=== PATIENT | male | born 1945 ===

== ENCOUNTER 2020-03-09 01:06 | Inpatient (IN) ==
[2020-03-09] MEDS ORDERED: IOPAMIDOL 100 ML BOTTLE IV ONE (01:07)
[2020-03-09] MEDS ORDERED: PANTOPRAZOLE 40 MG VIAL IV ONE (01:40)
[2020-03-09] MEDS ORDERED: LACTATED RINGERS 1,000 ML IV ONE (01:40)
--- NOTE | 2020-03-09 02:25 | Emergency Department Note ---
Abdominal Pain HPI - General Chief Complaint: Abdominal Pain Stated Complaint: Liver pain Time Seen by Provider: 03/09/20 01:40 Source: patient, EMS, old records reviewed Mode of arrival: EMS Limitations: altered mental status, other - History of Present Illness HPI Narrative: Patient is brought in by ambulance with the chief complaint of abdominal pain, he tells me he quit drinking about 3 months ago, prior to that he was drinking about one or 2 beers a day. [place] family that all tested positive for Covid, however, this was at least a month ago and he is not symptomatic with a cough, is not complaining of chest pain, his O2 sats are 98% and his chief complaint was more abdominal pain. He's not had any diarrhea, had a normal bowel movement today, there is no history of any syncope, weakness, he does tell me his pain is better now, is not really complaining of pain, although he is a little bit tender in the epigastric area. He's not sure whether he had hepatitis before in the past, his medications were reviewed. He does take Effexor, also he is on folic acid and B vitamins as well as thiamine. No history of recent trauma, no fevers or chills. MD Complaint: abdominal pain - Related Data Home Medications Medication Instructions Recorded Confirmed Folic Acid 1 mg PO QDAY 03/09/20 03/09/20 Multivit-Min/Iron Fum/Folic AC 1 each PO QDAY 03/09/20 03/09/20 [Uzysf-Jaarvfm-Yxfpmchg Tablet] Thiamine [Vitamin B1] 100 mg PO QDAY 03/09/20 03/09/20 Venlafaxine HCl [Venlafaxine HCl 75 mg PO QDAY 03/09/20 03/09/20 ER] Allergies Allergy/AdvReac Type Severity Reaction Status Date / Time Penicillins Allergy Unknown Verified 03/09/20 01:32 Review of Systems All systems ED: reviewed and negative except as stated. Constitutional: Denies: fever, chills Abdominal Pain PMH - Past Medical History Medical history: Reports: other (alcohol abuse in the past, hx depression) Surgical history ED: Reports: non-contributory, other (history of right eye injury, blindness right eye) Psychiatric history: Reports: anxiety, depression - Social History Smoking status: Current every day smoker Alcohol use: Reports: None Drug use: Reports: none Physical Exam Limitations: no limitations General appearance: alert, in no apparent distress Head: atraumatic, normocephalic, normal inspection Eye: Present: PERRL, visual kasper intact, other (his right eye is opaque, left eye appears within normal limits). Absent: periorbital swelling, periorbital tenderness ENT: Present: normal exam, normal oropharynx, mucous membranes moist, normal external ear exam Neck: Present: normal inspection, full ROM, trachea midline. Absent: tenderness, meningismus, lymphadenopathy, thyromegaly Chest: Present: normal inspection, symmetric chest wall rise Respiratory: Present: decreased breath sounds. Absent: respiratory distress, rales/crackles, wheezes Cardiovascular: Present: regular rate, normal rhythm, normal heart sounds Abdominal: Present: soft, tenderness, normal bowel sounds. Absent: distention, guarding, rebound Abdominal tenderness: Present: epigastrium, mild Extremities: Present: normal inspection, full ROM, normal capillary refill. Absent: tenderness, pedal edema, pretibial edema, joint swelling, calf tenderness, cyanosis, clubbing Back: Present: normal inspection, full ROM. Absent: CVA tenderness (R), CVA tenderness (L), vertebral tenderness Neurological: Present: alert, oriented X3 Psychiatric: Present: normal affect Skin: Present: warm, dry, normal color Course - Reevaluation(s) Reevaluation #1: Labs reviewed and he does have elevated lipase. On his CT scan. He is multiple low density lesions scattered throughout the liver and is gallbladder wall did diffusely enhances slightly. His white count was elevated 14,000, his lipase was almost 3000. CRP was normal, his CK was not elevated. He has no respiratory symptoms, but has been exposed to other family members that have had Covid and he does not recall having any respiratory symptoms, even as far as a month back. Otherwise, we'll test him for Covid keep him in isolation at this time. Discussed hospital admission with Dr. Best, at this point, he can get admitted for treatment of pancreatitis. Vital Signs Temperature 97.0 F 03/09/20 01:07 Pulse Rate 61 03/09/20 01:07 Respiratory Rate 21 03/09/20 01:07 Blood Pressure 116/65 03/09/20 01:07 Pulse Oximetry (%) 96 03/09/20 01:07 Temperature 97.0 F 03/09/20 01:07 Pulse Rate 62 03/09/20 03:31 Respiratory Rate 19 03/09/20 04:24 Blood Pressure 126/63 03/09/20 04:17 Pulse Oximetry (%) 100 03/09/20 03:31 Abdominal Pain - MDM Narrative Medical decision making narrative: Impression is pancreatitis. Family history of Covid 19. - Lab Data Lab results reviewed: Yes I reviewed the patient's lab results. Result diagrams: 03/09/20 02:10 03/09/20 02:10 Lab Results 03/09/20 03/09/20 03/09/20 Range/Units 02:10 02:10 02:10 WBC 14.4 H (4.50-11.00) K/mcL RBC 4.61 L (4.63-6.08) M/mcL Hgb 14.9 (13.7-17.5) g/dL Hct 44.4 (40.1-51.0) % MCV 96.3 (80.0-100.0) fL MCH 32.3 (26.0-34.0) pg MCHC 33.6 (31.0-36.0) g/dL RDW 12.8 (11.5-14.5) % Plt Count 232 (140-440) K/mcL MPV 11.0 H (7.4-10.4) fL Gran % 88.0 H (38.0-78.0) % Lymph % (Auto) 7.8 L (15.5-49.0) % [place] % (Auto) 4.0 (1.0-12.0) % Eos % (Auto) 0.1 (0.0-7.0) % Baso % (Auto) 0.1 (0.0-2.0) % Gran # 12.66 H (1.80-8.00) K/mcL Lymph # (Auto) 1.13 L (1.50-4.80) K/mcL [place] # (Auto) 0.58 (0.10-0.90) K/mcL Eos # (Auto) 0.02 (0.00-0.70) K/mcL Baso # (Auto) 0.02 (0.00-0.30) K/mcL PT 13.5 (11.9-14.5) sec INR 1.0 (0.9-1.1) VBG Lactic Acid (0.5-2.0) mmol/L Sodium 141 (133-145) mmol/L Potassium 4.4 (3.3-5.1) mmol/L Chloride 101 (96-108) mmol/L Carbon Dioxide 29 (22-30) mmol/L Anion Gap 11.0 (8-16) BUN 16 (8-23) mg/dl Creatinine 0.8 (0.7-1.2) mg/dl GFR Calculation 88 Glucose 117 H (70-105) mg/dL Calcium 9.6 (8.6-10.4) mg/dl Total Bilirubin 0.7 (0.0-1.0) mg/dL AST 122 H (0-37) U/l ALT 63 H (0-40) U/l Alkaline Phosphatase 87 (39-117) U/L Total Creatine Kinase (24-195) IU/L C-Reactive Protein < 0.3 (0.0-0.8) mg/dl Total Protein 7.1 (5.9-8.4) gm/dL Albumin 4.2 (3.2-5.2) gm/dL Globulin 2.9 (2.2-3.7) gm/dL Albumin/Globulin Ratio 1.4 (1.0-2.3) Lipase 2824 H (7-60) U/L Urine Color Urine Appearance Urine pH (5.0-9.0) Ur Specific [place] (1.000-1.035) Urine Protein (NEG) mg/dL Urine Glucose (UA) (NEG) mg/dL Urine Ketones (NEG) mg/dL Urine Occult Blood (<0.03) mg/dL Urine Nitrate (NEG) Urine Bilirubin (NEG) mg/dL Urine Urobilinogen (NEG) mg/dL Ur Leukocyte Esterase (NEG) /uL Ur Culture Indicated? Ethyl Alcohol (<0.010) gm/dl 03/09/20 03/09/20 03/09/20 Range/Units 02:10 02:10 02:10 WBC (4.50-11.00) K/mcL RBC (4.63-6.08) M/mcL Hgb (13.7-17.5) g/dL Hct (40.1-51.0) % MCV (80.0-100.0) fL MCH (26.0-34.0) pg MCHC (31.0-36.0) g/dL RDW (11.5-14.5) % Plt Count (140-440) K/mcL MPV (7.4-10.4) fL Gran % (38.0-78.0) % Lymph % (Auto) (15.5-49.0) % [place] % (Auto) (1.0-12.0) % Eos % (Auto) (0.0-7.0) % Baso % (Auto) (0.0-2.0) % Gran # (1.80-8.00) K/mcL Lymph # (Auto) (1.50-4.80) K/mcL [place] # (Auto) (0.10-0.90) K/mcL Eos # (Auto) (0.00-0.70) K/mcL Baso # (Auto) (0.00-0.30) K/mcL PT (11.9-14.5) sec INR (0.9-1.1) VBG Lactic Acid 1.8 (0.5-2.0) mmol/L Sodium (133-145) mmol/L Potassium (3.3-5.1) mmol/L Chloride (96-108) mmol/L Carbon Dioxide (22-30) mmol/L Anion Gap (8-16) BUN (8-23) mg/dl Creatinine (0.7-1.2) mg/dl GFR Calculation Glucose (70-105) mg/dL Calcium (8.6-10.4) mg/dl Total Bilirubin (0.0-1.0) mg/dL AST (0-37) U/l ALT (0-40) U/l Alkaline Phosphatase (39-117) U/L Total Creatine Kinase 80 (24-195) IU/L C-Reactive Protein (0.0-0.8) mg/dl Total Protein (5.9-8.4) gm/dL Albumin (3.2-5.2) gm/dL Globulin (2.2-3.7) gm/dL Albumin/Globulin Ratio (1.0-2.3) Lipase (7-60) U/L Urine Color Urine Appearance Urine pH (5.0-9.0) Ur Specific [place] (1.000-1.035) Urine Protein (NEG) mg/dL Urine Glucose (UA) (NEG) mg/dL Urine Ketones (NEG) mg/dL Urine Occult Blood (<0.03) mg/dL Urine Nitrate (NEG) Urine Bilirubin (NEG) mg/dL Urine Urobilinogen (NEG) mg/dL Ur Leukocyte Esterase (NEG) /uL Ur Culture Indicated? Ethyl Alcohol < 0.010 (<0.010) gm/dl 03/09/20 Range/Units 02:45 WBC (4.50-11.00) K/mcL RBC (4.63-6.08) M/mcL Hgb (13.7-17.5) g/dL Hct (40.1-51.0) % MCV (80.0-100.0) fL MCH (26.0-34.0) pg MCHC (31.0-36.0) g/dL RDW (11.5-14.5) % Plt Count (140-440) K/mcL MPV (7.4-10.4) fL Gran % (38.0-78.0) % Lymph % (Auto) (15.5-49.0) % [place] % (Auto) (1.0-12.0) % Eos % (Auto) (0.0-7.0) % Baso % (Auto) (0.0-2.0) % Gran # (1.80-8.00) K/mcL Lymph # (Auto) (1.50-4.80) K/mcL [place] # (Auto) (0.10-0.90) K/mcL Eos # (Auto) (0.00-0.70) K/mcL Baso # (Auto) (0.00-0.30) K/mcL PT (11.9-14.5) sec INR (0.9-1.1) VBG Lactic Acid (0.5-2.0) mmol/L Sodium (133-145) mmol/L Potassium (3.3-5.1) mmol/L Chloride (96-108) mmol/L Carbon Dioxide (22-30) mmol/L Anion Gap (8-16) BUN (8-23) mg/dl Creatinine (0.7-1.2) mg/dl GFR Calculation Glucose (70-105) mg/dL Calcium (8.6-10.4) mg/dl Total Bilirubin (0.0-1.0) mg/dL AST (0-37) U/l ALT (0-40) U/l Alkaline Phosphatase (39-117) U/L Total Creatine Kinase (24-195) IU/L C-Reactive Protein (0.0-0.8) mg/dl Total Protein (5.9-8.4) gm/dL Albumin (3.2-5.2) gm/dL Globulin (2.2-3.7) gm/dL Albumin/Globulin Ratio (1.0-2.3) Lipase (7-60) U/L Urine Color Yellow Urine Appearance Clear Urine pH 5.0 (5.0-9.0) Ur Specific [place] 1.017 (1.000-1.035) Urine Protein Neg (NEG) mg/dL Urine Glucose (UA) Negative (NEG) mg/dL Urine Ketones Neg (NEG) mg/dL Urine Occult Blood Neg (<0.03) mg/dL Urine Nitrate Neg (NEG) Urine Bilirubin Neg (NEG) mg/dL Urine Urobilinogen 4.0 A (NEG) mg/dL Ur Leukocyte Esterase Neg (NEG) /uL Ur Culture Indicated? No Ethyl Alcohol (<0.010) gm/dl - Radiology Data Radiology results reviewed: Yes I reviewed the patient's radiology results. Disposition Pt seen by INJURY PREVENTION COORDINATOR/PA only: No Clinical Impression: Abdominal pain, Acute pancreatitis Disposition: Xfer As Inpt ([facility]) Condition: Fair Referrals: Alban Cortes DO [Primary Care Provider] -
[2020-03-09] MEDS ORDERED: ACETAMINOPHEN 325 MG TABLET PO ONE (02:29)
[2020-03-09] MEDS ORDERED: SUCRALFATE 1 GM/10 ML ORAL.SUSP PO ONE (02:30)
[2020-03-09 02:58] LABS: Basophils # (Auto) 0.02 K/mcL (0.00-0.30); Basophils % (Auto) 0.1 % (0.0-2.0); Eosinophils # (Auto) 0.02 K/mcL (0.00-0.70); Eosinophils % (Auto) 0.1 % (0.0-7.0); Hematocrit 44.4 % (40.1-51.0); Hemoglobin 14.9 g/dL (13.7-17.5); Lymphocytes # (Auto) 1.13 K/mcL (1.50-4.80); Lymphocytes % (Auto) 7.8 % (15.5-49.0); Mean Cell Volume 96.3 fL (80.0-100.0); Mean Corpuscular HGB Conc 33.6 g/dL (31.0-36.0); Monocytes # (Auto) 0.58 K/mcL (0.10-0.90); Platelet Count 232 K/mcL (140-440); RBC 4.61 M/mcL (4.63-6.08); Red Cell Distribution Width 12.8 % (11.5-14.5); WBC 14.4 K/mcL (4.50-11.00)
[2020-03-09 03:05] LABS: Prothrombin Time 13.5 sec (11.9-14.5)
[2020-03-09 03:12] LABS: Alcohol, Blood < 10.0 mg/dL (<10); Alcohol,Blood < 0.010 gm/dl (<0.010)
[2020-03-09 03:16] LABS: ALT/SGPT 63 U/l (0-40); AST/SGOT 122 U/l (0-37); Albumin 4.2 gm/dL (3.2-5.2); Albumin/Globulin Ratio 1.4 (1.0-2.3); Alkaline Phosphatase 87 U/L (39-117); Bilirubin,Total 0.7 mg/dL (0.0-1.0); Blood Urea Nitrogen 16 mg/dl (8-23); C-Reactive Protein < 0.3 mg/dl (0.0-0.8); Calcium 9.6 mg/dl (8.6-10.4); Carbon Dioxide 29 mmol/L (22-30); Chloride 101 mmol/L (96-108); Globulin 2.9 gm/dL (2.2-3.7); Glomerular Filtration Rate 88; Glucose 117 mg/dL (70-105)
[2020-03-09 03:30] LABS: Appearance,Urine CLEAR; Bilirubin,Urine NEG (NEG); Color,Urine YELLOW; Culture Indicated,Urine NO; Glucose,Urine (UA) NEGATIVE (NEG); Ketones,Urine NEG (NEG); Leukocyte Esterase,Urine NEG /uL (NEG); Nitrate,Urine NEG (NEG); Protein,Urine NEG (NEG); Specific Gravity,Urine 1.017 (1.000-1.035); Urine Blood NEG mg/dL (<0.03)
[2020-03-09] MEDS: LACTATED RINGERS 1,000 ML IV SCH ×6 (04:45→23:57)
[2020-03-09] MEDS ORDERED: ONDANSETRON 4 MG/2 ML VIAL IV PRN (06:09)
[2020-03-09] MEDS ORDERED: HYDROmorphone 0.5 MG/0.5 ML SYRINGE IV PRN (06:09)
[2020-03-09] MEDS ORDERED: LACTATED RINGERS 1,000 ML IV SCH (06:15)
[2020-03-09] MEDS ORDERED: ACETAMINOPHEN 325 MG TABLET PO PRN (06:51)
[2020-03-09] MEDS ORDERED: BISACODYL 10 MG SUPP.RECT PR PRN (06:51)
[2020-03-09] MEDS ORDERED: ONDANSETRON 4 MG ODT TABLET SL PRN (06:51)
[2020-03-09] MEDS ORDERED: POLYETHYLENE GLYCOL 3350 17 GM PACKET PO PRN (06:51)
[2020-03-09] MEDS ORDERED: POTASSIUM CHLORIDE 20 MEQ PACKET PO PRN (06:51)
[2020-03-09] MEDS ORDERED: MAGNESIUM SULFATE 2 GM/50 ML BAG IV PRN (06:51)
--- NOTE | 2020-03-09 06:59 | Internal Med History&Physical ---
Medical - H&P: [facility] Patient information: Note initiated : 03/09/20 at 6:54 am Service Date, if different from initiated Date: [] Patient: Aditya Villafana a 75 y/o M admitted on for Liver pain. Chief Complaint: [] Chief complaint: Abdominal pain nausea History of present illness: Mr. Villafana is a 75 year old M with a history of chronic alcoholism who recently quit drinking 3 months ago. He was in his baseline state of health and lives at [facility]. Over the last 8 to 10 days he has been getting progressively weak along with associated dull pain, nausea and loss of appetite. Symptoms are progressed that he is barely able to function or eat. He denies taking new medications. He however gives a history that all his family members were recently positive with COVID-19. He however was not tested. He denies having similar symptoms including URI/diarrhea/cough or shortness of breath except for above abdominal symptoms. Patient work-up in the ER was consistent with acute pancreatitis with lipase over 2800 CT evidence of pancreatitis. Hospital service was consulted after patient was started on crystalloid/supportive management. At time evaluation patient is able to answer most the question but intermittently confused. Cover test was performed. He does not seem to apparent distress. He denies shortness of breath, shaking chills, fever, sore throat. He denies using alcohol recently Review of systems A 10 point review system was performed and is negative except for ones discussed above Medical - H&P: PMH Medical history: History of alcoholism Anxiety disorder Pertinent family history: Nonrelevant other than recent multiple family members with positive for coronavirus Social history: Quit drinking 3 months ago Medical - H&P: Meds Home Medications Medication Instructions Recorded Confirmed Type Folic Acid 1 mg PO QDAY 03/09/20 03/09/20 History Multivit-Min/Iron Fum/Folic AC 1 each PO QDAY 03/09/20 03/09/20 History [Ktqyo-Mcmwueo-Lyifkpps Tablet] Thiamine [Vitamin B1] 100 mg PO QDAY 03/09/20 03/09/20 History Venlafaxine HCl [Venlafaxine HCl 75 mg PO QDAY 03/09/20 03/09/20 History ER] Allergies Allergy/AdvReac Type Severity Reaction Status Date / Time Penicillins Allergy Unknown Verified 03/09/20 01:32 Medical - H&P: Exam - Constitutional Vitals: Temp Pulse Resp BP Pulse Ox 97.0 F 66 18 129/73 98 03/09/20 01:07 03/09/20 06:49 03/09/20 06:31 03/09/20 06:47 03/09/20 06:49 General appearance: thin Exam: Nondistressed but anxious Head normocephalic Oral cavity dry No ear nose discharge Neck lymphadenopathy S1-S2 regular Diminished breath sounds bases Abdomen tender palpation but no guarding Lower extremity no cyanosis clubbing no joint swelling No suspicious lesion Psych alert but anxious disoriented to time, Neuro moving all 4 extremities Medical - H&P: Reslt - Labs CBC & Chem 7: 03/10/20 05:35 03/10/20 05:35 Labs: Short CBC 03/09/20 Range/Units 02:10 WBC 14.4 H (4.50-11.00) K/mcL Hgb 14.9 (13.7-17.5) g/dL Hct 44.4 (40.1-51.0) % Plt Count 232 (140-440) K/mcL BMP 03/09/20 02:10 Sodium 141 Potassium 4.4 Chloride 101 Carbon Dioxide 29 BUN 16 Creatinine 0.8 Glucose 117 H Calcium 9.6 Cardiac Enzymes 03/09/20 Range/Units 02:10 Total Creatine Kinase 80 (24-195) IU/L Liver Function 03/09/20 Range/Units 02:10 Total Bilirubin 0.7 (0.0-1.0) mg/dL AST 122 H (0-37) U/l ALT 63 H (0-40) U/l Alkaline Phosphatase 87 (39-117) U/L Albumin 4.2 (3.2-5.2) gm/dL Urine 03/09/20 Range/Units 02:45 Urine Color Yellow Urine Appearance Clear Urine pH 5.0 (5.0-9.0) Ur Specific [place] 1.017 (1.000-1.035) Urine Protein Neg (NEG) mg/dL Urine Glucose (UA) Negative (NEG) mg/dL Medical - H&P: A/P (1) Acute pancreatitis Current visit: Yes Status: Acute * Acute pancreatitis low Deya's/Woodruff 2 score on presentation. Possible etiology gallstone pancreatitis. Initiate conservative management including analgesics/crystalloid/antiemetics and bowel rest. Close monitoring hemodynamics/electrolytes. Ultrasound rule out CBD obstruction, daily CRP/lipase trending * Leukocytosis with systemic inflammatory response syndrome due to acute pancrea titis * Elevated LFTs await gallbladder/liver ultrasound. Tox profile negative for alcohol * Recent exposure to coronavirus-await COVID testing. Placement in negative pressure room with contact-precautions * Tobacco dependence start nicotine patch * Full code * prophylaxis Heparin Plan * Inpatient admission * Conservative management with fluid support * CRP/lipase trending * bowel rest * Liver ultrasound * Surgery consult if indicated
--- NOTE | 2020-03-09 08:59 | Cat Scan Report ---
CLINICAL INFORMATION: Epigastric pain and pancreatitis COMPARISON: None. TECHNIQUE: Following enteric contrast, 80 cc of Isovue-370 were injected intravenously, and 60 seconds later, 0.625 mm helical slices were obtained from the mid heart through the subtrochanteric regions. Following reconstruction, 2.5 mm sagittal, coronal and axial reformatted images were processed and reviewed at bone, lung and soft tissue windows. Five minutes later, 0.625 mm helical slices were obtained from the mid heart through the kidneys and viewed at soft tissue windows.The exam was performed using radiation dose optimization techniques including, but not limited to, automated exposure control, adjustment of the mA and/or kV according to patient size and use of iterative reconstruction technique. FINDINGS: Lung bases show COPD changes with scattered scarring and/or atelectasis. No effusion. The visualized heart is normal. Abdominal images show multiple low-attenuation lesions scattered throughout the liver ranging up to 3 cm. Most merely represent simple cysts, however a few lesions show elevated attenuation and septation. Gallbladder is contracted wall but there is normal wall thickness. The intrahepatic and common bile duct normal caliber: CBD is 5 mm. The pancreatic, head and neck and proximal body), demonstrate homogeneous low attenuation with moderate fluid in the peripancreatic fat planes extending into the lesser sac and paracolic gutters. Findings compatible simple pancreatitis. Pancreatic duct is normal caliber - 2.5 mm. Both kidneys, adrenal glands, plane and aorta including aortic branches are normal in size configuration and attenuation without focal lesion. The stomach, small large bowel demonstrate symmetric dilatation and moderate colonic stool and bowel with moderate ileus. There is no free air or adenopathy. Pelvic images show mild prostate enlargement with a transverse dimension 5 cm. Seminal vesicles and urinary bladder are normal. Bone windows show chronic left L5-S1 spondylolytic defect. There is moderate degenerative change in the lower lumbar spine. IMPRESSION: 1. Simple pancreatitis involving the head, neck and proximal body. Moderate fluid seen in the peripancreatic fat planes, lesser sac and paracolic gutter. There is no evidence of necrosis, pseudocyst abscess or other pancreatitis complication. 2. Multiple low-attenuation lesions throughout the liver ranging up to 3 cm. Most, if not all, of these represent cysts, however some of the lesions have higher attenuation with septations and possible solid components. Ultrasound recommended to evaluate for solid or complex lesions which could represent metastases or other more ominous pathology. 3. COPD. 4. Moderate ileus with a large amount colonic stool 5. Mild prostate enlargement 6. Chronic left L5-S1 spondylolisthesis. Moderate degeneration in the lower lumbar spine Interpreted and Authenticated by: Amado Silva 03/09/20
[2020-03-09] MEDS: MULTIVIT,THER IRON,CA,FA & MIN 1 TABLET PO SCH (09:14)
[2020-03-09] MEDS: DOCUSATE SODIUM 100 MG CAPSULE PO SCH ×2 (09:14→20:40)
[2020-03-09] MEDS: HEPARIN 5,000 UNIT/ML VIAL SQ SCH ×2 (09:14→20:40)
[2020-03-09] MEDS: 0.9 % SODIUM CHLORIDE 10 ML SYRINGE IV SCH ×2 (13:19→20:40)
--- NOTE | 2020-03-09 15:50 | Ultrasound Report ---
CLINICAL INFORMATION: r/o CBD/cholecystitis, Ac pancreatitis COMPARISON: Abdomen and pelvic CT 03/09/2020 FINDINGS: Liver is normal in size with mildly heterogeneous echotexture. There are multiple small cysts widely disseminated throughout the hepatic parenchyma. In the caudate lobe, there is a 1.7 cm hypoechoic lesion with internal echoes and septations. In the anterior left hepatic lobe there is a 2 cm hypoechoic lesion with internal echoes and septations. In the posterior segment of the right hepatic lobe, there is a 1.6 cm septated focal lesion with internal echoes and posterior acoustic enhancement. Multiple small stones layer dependently within the gallbladder. Gallbladder wall is mildly thickened (4 mm) and there is is mild tenderness over the gallbladder on probe palpation. The common bile is normal caliber at 6 mm. No evidence of choledocholithiasis. Both kidneys, spleen, aorta and IVC are normal. The pancreatic parenchyma is hypoechoic compatible with known pancreatitis. IMPRESSION: 1. Hypoechoic pancreatic head and neck compatible with known pancreatitis from CT imaging and elevated lipase/amylase 2. Multiple stones in the gallbladder with mild wall thickening and focal tenderness suggesting associated cholecystitis. Patient may also gallstone pancreatitis although no stone is not identified pancreatic duct on ultrasound. 3. Multiple cysts throughout the liver. In addition, there are three complex lesions with internal echoes and septations. These additional lesions are indeterminate: May may represent infection or, less likely, cystic metastases from unknown primary carcinoma. Consider abdominal MRI/ MRCP to evaluate the liver lesions and also to determine presence of a stone in the pancreatic duct which may require ERCP extraction Interpreted and Authenticated by: Amado Silva 03/09/20
[2020-03-09] MEDS: SENNOSIDES/DOCUSATE SODIUM 1 TAB TABLET PO SCH (20:40)
[2020-03-09] MEDS ORDERED: MELATONIN 3 MG TABLET PO PRN (21:00)
[2020-03-10] MEDS: LACTATED RINGERS 1,000 ML IV SCH ×3 (03:51→15:12)
[2020-03-10] MEDS: 0.9 % SODIUM CHLORIDE 10 ML SYRINGE IV SCH ×3 (05:08→21:13)
[2020-03-10 06:38] LABS: Hematocrit 36.4 % (40.1-51.0); Hemoglobin 12.5 g/dL (13.7-17.5); Mean Cell Volume 95.8 fL (80.0-100.0); Mean Corpuscular HGB Conc 34.3 g/dL (31.0-36.0); Mean Platelet Volume 11.1 fL (7.4-10.4); Platelet Count 189 K/mcL (140-440); Red Cell Distribution Width 13.1 % (11.5-14.5); WBC 8.6 K/mcL (4.50-11.00)
[2020-03-10 07:03] LABS: ALT/SGPT 37 U/l (0-40); AST/SGOT 28 U/l (0-37); Albumin 3.1 gm/dL (3.2-5.2); Alkaline Phosphatase 63 U/L (39-117); Bilirubin,Direct < 0.2 mg/dL (0.0-0.3); Bilirubin,Total 0.7 mg/dL (0.0-1.0); Blood Urea Nitrogen 9 mg/dl (8-23); C-Reactive Protein 7.3 mg/dl (0.0-0.8); Calcium 8.5 mg/dl (8.6-10.4); Carbon Dioxide 28 mmol/L (22-30); Chloride 104 mmol/L (96-108); Glomerular Filtration Rate 88; Glucose 106 mg/dL (70-105); Lactate Dehydrogenase 186 U/L (94-250); Phosphorous 2.6 mg/dL (2.7-4.5); Triglycerides 63 mg/dl (<150); Uric Acid 3.6 mg/dL (2.5-8.0)
[2020-03-10 07:22] LABS: Albumin/Globulin Ratio 1.3 (1.0-2.3); Globulin 2.4 gm/dL (2.2-3.7)
[2020-03-10 07:52] LABS: Lymphocytes % 21 % (15-49); Monocytes % (Manual) 9 % (1-12); Platelet Estimate NORMAL (NORMAL); RBC Morphology NORMAL (NORMAL); Segmented Neutrophils % 70 % (38-78)
[2020-03-10] MEDS: DOCUSATE SODIUM 100 MG CAPSULE PO SCH ×2 (08:55→21:13)
[2020-03-10] MEDS: FOLIC ACID 1 MG TABLET PO SCH (08:55)
[2020-03-10] MEDS: MULTIVIT,THER IRON,CA,FA & MIN 1 TABLET PO SCH (08:55)
[2020-03-10] MEDS: VENLAFAXINE 75 MG CAP.XL.24H PO SCH (08:55)
[2020-03-10] MEDS: THIAMINE 100 MG TABLET PO SCH (08:55)
[2020-03-10] MEDS: HEPARIN 5,000 UNIT/ML VIAL SQ SCH ×2 (08:56→21:09)
[2020-03-10] MEDS ORDERED: MULTIVIT MIN PO SCH (09:00)
[2020-03-10] MEDS ORDERED: IRON FUM PO SCH (09:00)
[2020-03-10] MEDS ORDERED: [UNRECOGNIZED DRUG - OTHER] PO SCH (09:00)
[2020-03-10] MEDS ORDERED: FOLIC AC PO SCH (09:00)
--- NOTE | 2020-03-10 09:33 | Internal Med Progress Note ---
Medical - PN: Subj Patient information: Note initiated : 03/10/20 at 9:29 am Service Date, if different from initiated Date: [] Patient: Aditya Villafana a 75 y/o M admitted on 03/09/20 for Liver pain. Chief Complaint: [] Interval history: Mr. Villafana is a 75 year old M with a history of chronic alcoholism who recently quit drinking 3 months ago. He was in his baseline state of health and lives at [facility] [place]. Over the last 8 to 10 days he has been getting progressively weak along with associated dull pain, nausea and loss of appetite. Symptoms are progressed that he is barely able to function or eat. He denies taking new medications. He however gives a history that all his family members were recently positive with COVID-19. He however was not tested. He denies having similar symptoms including URI/diarrhea/cough or shortness of breath except for above abdominal symptoms. Patient work-up in the ER was consistent with acute pancreatitis with lipase over 2800 CT evidence of pancreatitis. Hospital service was consulted after patient was started on crystalloid/supportive management. At time evaluation patient is able to answer most the question but intermittently confused. Cover test was performed. He does not seem to apparent distress. He denies shortness of breath, shaking chills, fever, sore throat. He denies using alcohol recently 03/10-patient clinically improving. Stable hemodynamics. Improving abdominal pain nausea. Ultrasound shows evidence of cholecystitis/gallstone. Case discussed with surgery. Patient will likely require cholecystectomy during this hospitalization. Continue crystalloid/continue full liquids/conservative manage including fluids and analgesics. - Constitutional Vitals: Vital Signs Temp Pulse Resp BP Pulse Ox 99.1 F H 72 18 112/58 97 03/10/20 08:00 03/10/20 08:00 03/10/20 08:00 03/10/20 08:00 03/10/20 08:00 Period Temp Pulse Resp BP Sys/Flynn Pulse Ox Last 24 Hr 97.1 F-99.3 F 60-72 16-20 100-162/58-82 91-99 Intake and Output 03/09/20 03/10/20 03/10/20 21:59 05:59 13:59 Intake Total 1140 1003 Output Total 526 625 Balance 614 378 Weight 127 lb 14.4 oz Intake & Output: Intake & Output 03/09/20 03/10/20 03/10/20 21:59 05:59 13:59 Intake Total 1140 1003 Output Total 526 625 Balance 614 378 Weight 127 lb 14.4 oz Intake: IV 660 903 Lactated Ringers 1,000 ml @ 100 660 903 mls/hr IV .Q10H [facility] Rx#: [id number] Oral 480 100 Output: Void Amount 525 625 # of times incontinent of urine 1 Other: Meal Ice cream & jello Ice cream Percent of Meal Consumed 100% 100% Feeding Ability Independent Independent Urine Appearance Clear Clear Urine Color Dark Yellow Dark Yellow Urine Odor Strong General appearance: no acute distress Exam: Alert oriented Nonlabored breathing No anxiety Minimally tender abdomen Medical - PN: Obj Da - Labs CBC & Chem 7: 03/10/20 05:35 03/10/20 05:35 Labs: Abnormal Lab Results 03/10/20 03/10/20 03/09/20 05:35 05:35 02:45 WBC RBC 3.80 L Hgb 12.5 L Hct 36.4 L MPV 11.1 H Gran % Lymph % (Auto) Gran # Lymph # (Auto) Glucose 106 H Calcium 8.5 L Phosphorus 2.6 L AST ALT C-Reactive Protein 7.3 H Total Protein 5.5 L Albumin 3.1 L Lipase Urine Urobilinogen 4.0 A 03/09/20 03/09/20 02:10 02:10 WBC 14.4 H RBC 4.61 L Hgb Hct MPV 11.0 H Gran % 88.0 H Lymph % (Auto) 7.8 L Gran # 12.66 H Lymph # (Auto) 1.13 L Glucose 117 H Calcium Phosphorus AST 122 H ALT 63 H C-Reactive Protein Total Protein Albumin Lipase 2824 H Urine Urobilinogen Meds: Medications Acetaminophen (Tylenol) 650 mg PO Q4-6HP PRN; Protocol PRN Reason: Per Pain Protocol/Fever > 101 Bisacodyl (Dulcolax) 10 mg [place] Q2-3DAYS PRN PRN Reason: Constipation Docusate Sodium (Colace) 100 mg PO BID [facility] Last Admin: 03/10/20 08:55 Dose: 100 mg Documented by: Folic Acid (Folic Acid) 1 mg PO QDAY [facility] Last Admin: 03/10/20 08:55 Dose: 1 mg Documented by: Heparin Sodium (Porcine) (Heparin) 5,000 unit SQ Q12 [facility] Last Admin: 03/10/20 08:56 Dose: 5,000 unit Documented by: Hydromorphone HCl (Dilaudid) 0.5 mg IV Q2HP PRN; Protocol PRN Reason: Per Pain Protocol Lactated Ringer's (Lactated Ringers) 1,000 mls @ 100 mls/hr IV .Q10H [facility] Stop: 03/10/20 22:59 Last Admin: 03/10/20 03:51 Dose: Not Given Documented by: Magnesium Sulfate (Magnesium Sulfate) 2 gm in 50 mls @ 50 mls/hr IV UD PRN PRN Reason: MG = or < 1.7 Iron Carb/Multivit/[place]/Folic Acid (Multivitamin W/Minerals) 1 tab PO DAILY [facility] Last Admin: 03/10/20 08:55 Dose: 1 tab Documented by: Melatonin (Melatonin 3mg Tablet) 3 mg PO HSP PRN PRN Reason: Insomnia Ondansetron HCl (Zofran) 4 mg IV Q4HP PRN PRN Reason: Nausea And Vomiting Ondansetron HCl (Zofran Odt) 4 mg SL Q4-6HP PRN; Protocol PRN Reason: Nausea And Vomiting Polyethylene Glycol (Miralax) 17 gm PO DAILYP PRN PRN Reason: Constipation Potassium Chloride (Klor-Con) 40 meq PO DAILYP PRN PRN Reason: K+ < 3.5 Senna/Docusate Sodium (Senna Plus Tablet) 1 tab PO HS [facility] Last Admin: 03/09/20 20:40 Dose: Not Given Documented by: Sodium Chloride (Saline Flush) 10 ml IV Q8 [facility] Last Admin: 03/10/20 05:08 Dose: Not Given Documented by: Thiamine HCl (Vitamin B1) 100 mg PO QDAY [facility] Last Admin: 03/10/20 08:55 Dose: 100 mg Documented by: Venlafaxine HCl (Effexor Xr) 75 mg PO DAILY [facility] Last Admin: 03/10/20 08:55 Dose: 75 mg Documented by: Medical - PN: A/P - Time Spent With Patient Total time spent is greater than 50% in coordination of care (as documented) at patient's floor/unit and/or counseling patient: 25 - 35 minutes (1) Acute pancreatitis Status: Acute Assessment and plan: * Acute gallstone pancreatitis -clinical improvement noted on conservative management. Underlying cholecystitis. Surgery consulted. Continue CRP/lipase trending * Acute cholecystitis surgery consulted. Start antibiotic coverage * Leukocytosis with systemic inflammatory response syndrome due to acute pancreatitis-clinically improving * Elevated LFTs -rapid improvement noted. LFTs normalized. * Recent exposure to coronavirus-await COVID testing. Placement in negative pressure room with contact-precautions * Tobacco dependence start nicotine patch * Full code * prophylaxis Heparin Plan * Continue conservative management * Surgery consult * Cipro Flagyl * Blood cultures * CRP/lipase trending * Continue bowel rest * Nicotine patch Current Visit: Yes Medical - PN: Qual - Stroke Symptom Onset Unknown: No - VTE Deep Vein Thrombosis/Pulmonary Embolism Present on Admission: No
[2020-03-10] MEDS: metroNIDAZOLE 500 MG/100 ML BAG IV SCH ×4 (10:19→23:43)
[2020-03-10] MEDS: CIPROFLOXACIN 400 MG/200 ML BAG IV SCH ×2 (11:46→21:10)
--- NOTE | 2020-03-10 14:47 | General Surgery Consult Note ---
History of Present Illness Patient information: Note initiated : 03/10/20 at 2:32 pm Service Date, if different from initiated Date: [] Patient: Aditya Villafana 75 y/o M admitted on 03/09/20 for Liver pain. Chief Complaint: [] Reason for consult: abdominal pain Requesting physician: Amado Reed History of present illness: 75-year-old male admitted o on 03/09/20 with acute abdominal pain and evidence of acute pancreatitis. The patient has a long history of chronic alcoholism but relates that he stopped drinking 3 months ago. 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 On evaluation he was noted to have multiple complex nodules of his liver as well as gallstones in his gallbladder. He has edema of the head neck and proximal body of the pancreas compatible with his pancreatitis. He also has significant pericholecystic and peripancreatic fluid related to his pancreatitis. He has been treated and his white blood count has improved. His pain is also improved. The patient was confirmed as COVID Positive in late December . By history he is asymptomatic but he has not had a follow-up test. According to his sister the entire family has tested positive for COVID19. Further review of his history with his family reveals that the patient has incurable hepatocellular cancer though he is receiving palliative therapy through the local oncology clinic. Therapy was withheld and he was positive initially and has not been resumed. Even though the patient has gallstones his CRP is normal and there is no significant swelling of his gallbladder. This suggests that the pancreatitis is probably not associated with acute cholecystitis and the patient does not need to have urgent cholecystectomy. A repeat COVID test has been performed but the results are not available at this time. In view of this history I do not think that the patient is a candidate for urgent cholecystectomy at this time. I discussed his history with the radiologist and says he does not have acute cholecystitis he is not a candidate for percutaneous cholecystostomy. Recommendation: the patient should have medical treatment of his pancreatitis and discharged home. There is no urgency in performing cholecystectomy on this patient unless he has cholecystitis. Since his alkaline phosphatase is totally normal and a mild elevation in LFTs can be explained on the basis of his hepatocellular malignancy; it is highly probable that he is not going to benefit from any type of intervention on his gallbladder at this time. Medications and Allergies Home Medications Medication Instructions Recorded Confirmed Type Folic Acid 1 mg PO QDAY 03/09/20 03/09/20 History Multivit-Min/Iron Fum/Folic AC 1 each PO QDAY 03/09/20 03/09/20 History [Ngpsb-Qicrlya-Hvhkjgwk Tablet] Thiamine [Vitamin B1] 100 mg PO QDAY 03/09/20 03/09/20 History Venlafaxine HCl [Venlafaxine HCl 75 mg PO QDAY 03/09/20 03/09/20 History ER] Allergies Allergy/AdvReac Type Severity Reaction Status Date / Time Penicillins Allergy Unknown Verified 03/09/20 01:32 Exam Temp Pulse Resp BP Pulse Ox 99.5 F H 71 18 110/68 98 03/10/20 11:48 03/10/20 11:48 03/10/20 11:48 03/10/20 11:48 03/10/20 11:48 Results - Labs 03/10/20 05:35 03/10/20 05:35 Abnormal lab results 03/10/20 03/10/20 03/10/20 Range/Units 05:35 05:35 09:54 RBC 3.80 L (4.63-6.08) M/mcL Hgb 12.5 L (13.7-17.5) g/dL Hct 36.4 L (40.1-51.0) % MPV 11.1 H (7.4-10.4) fL Glucose 106 H (70-105) mg/dL Calcium 8.5 L (8.6-10.4) mg/dl Phosphorus 2.6 L (2.7-4.5) mg/dL C-Reactive Protein 7.3 H (0.0-0.8) mg/dl Total Protein 5.5 L (5.9-8.4) gm/dL Albumin 3.1 L (3.2-5.2) gm/dL Lipase 143 H (7-60) U/L Diabetes panel 03/10/20 Range/Units 05:35 Sodium 140 (133-145) mmol/L Potassium 4.1 (3.3-5.1) mmol/L Chloride 104 (96-108) mmol/L Carbon Dioxide 28 (22-30) mmol/L BUN 9 (8-23) mg/dl Creatinine 0.8 (0.7-1.2) mg/dl Glucose 106 H (70-105) mg/dL Calcium 8.5 L (8.6-10.4) mg/dl AST 28 (0-37) U/l ALT 37 (0-40) U/l Alkaline Phosphatase 63 (39-117) U/L Total Protein 5.5 L (5.9-8.4) gm/dL Albumin 3.1 L (3.2-5.2) gm/dL Triglycerides 63 (<150) mg/dl Calcium panel 03/10/20 Range/Units 05:35 Calcium 8.5 L (8.6-10.4) mg/dl Phosphorus 2.6 L (2.7-4.5) mg/dL Albumin 3.1 L (3.2-5.2) gm/dL Pituitary panel 03/10/20 Range/Units 05:35 Sodium 140 (133-145) mmol/L Potassium 4.1 (3.3-5.1) mmol/L Chloride 104 (96-108) mmol/L Carbon Dioxide 28 (22-30) mmol/L BUN 9 (8-23) mg/dl Creatinine 0.8 (0.7-1.2) mg/dl Glucose 106 H (70-105) mg/dL Calcium 8.5 L (8.6-10.4) mg/dl Adrenal panel 03/10/20 Range/Units 05:35 Sodium 140 (133-145) mmol/L Potassium 4.1 (3.3-5.1) mmol/L Chloride 104 (96-108) mmol/L Carbon Dioxide 28 (22-30) mmol/L BUN 9 (8-23) mg/dl Creatinine 0.8 (0.7-1.2) mg/dl Glucose 106 H (70-105) mg/dL Calcium 8.5 L (8.6-10.4) mg/dl Total Bilirubin 0.7 (0.0-1.0) mg/dL AST 28 (0-37) U/l ALT 37 (0-40) U/l Alkaline Phosphatase 63 (39-117) U/L Total Protein 5.5 L (5.9-8.4) gm/dL Albumin 3.1 L (3.2-5.2) gm/dL All other labs normal. Assessment and Plan (1) Cholelithiasis without cholecystitis Operative therapy is not indicated at this time. Status: Acute (2) Acute pancreatitis Status: Acute (3) Primary hepatocellular carcinoma of liver Status: Acute
[2020-03-10] MEDS: SENNOSIDES/DOCUSATE SODIUM 1 TAB TABLET PO SCH (21:13)
[2020-03-11] MEDS: metroNIDAZOLE 500 MG/100 ML BAG IV SCH ×4 (05:32→23:20)
[2020-03-11] MEDS: 0.9 % SODIUM CHLORIDE 10 ML SYRINGE IV SCH ×3 (05:32→21:42)
[2020-03-11 06:32] LABS: Hematocrit 36.1 % (40.1-51.0); Mean Corpuscular HGB Conc 33.2 g/dL (31.0-36.0); Mean Platelet Volume 11.5 fL (7.4-10.4); Platelet Count 166 K/mcL (140-440); Red Cell Distribution Width 12.8 % (11.5-14.5); WBC 6.5 K/mcL (4.50-11.00)
[2020-03-11 07:05] LABS: ALT/SGPT 25 U/l (0-40); AST/SGOT 20 U/l (0-37); Albumin 3.1 gm/dL (3.2-5.2); Albumin/Globulin Ratio 1.2 (1.0-2.3); Alkaline Phosphatase 59 U/L (39-117); Bilirubin,Direct < 0.2 mg/dL (0.0-0.3); Bilirubin,Total 0.8 mg/dL (0.0-1.0); C-Reactive Protein 8.2 mg/dl (0.0-0.8); Calcium 8.3 mg/dl (8.6-10.4); Carbon Dioxide 26 mmol/L (22-30); Chloride 104 mmol/L (96-108); Globulin 2.5 gm/dL (2.2-3.7); Glomerular Filtration Rate 93; Glucose 99 mg/dL (70-105); Lactate Dehydrogenase 198 U/L (94-250); Phosphorous 2.7 mg/dL (2.7-4.5); Triglycerides 60 mg/dl (<150); Uric Acid 3.5 mg/dL (2.5-8.0)
[2020-03-11 07:10] LABS: Blood Urea Nitrogen 7 mg/dl (8-23)
[2020-03-11 07:13] LABS: Eosinophils % (Manual) 2 % (0-7); Lymphocytes % 17 % (15-49); Monocytes % (Manual) 2 % (1-12); Platelet Estimate NORMAL (NORMAL); RBC Morphology NORMAL (NORMAL); Segmented Neutrophils % 79 % (38-78)
[2020-03-11] MEDS: MULTIVIT,THER IRON,CA,FA & MIN 1 TABLET PO SCH (08:30)
[2020-03-11] MEDS: THIAMINE 100 MG TABLET PO SCH (08:30)
[2020-03-11] MEDS: VENLAFAXINE 75 MG CAP.XL.24H PO SCH (08:30)
[2020-03-11] MEDS: FOLIC ACID 1 MG TABLET PO SCH (08:30)
[2020-03-11] MEDS: DOCUSATE SODIUM 100 MG CAPSULE PO SCH ×2 (08:30→21:42)
[2020-03-11] MEDS: HEPARIN 5,000 UNIT/ML VIAL SQ SCH ×2 (08:31→21:42)
[2020-03-11] MEDS: CIPROFLOXACIN 400 MG/200 ML BAG IV SCH ×2 (09:27→21:39)
--- NOTE | 2020-03-11 11:20 | Internal Med Progress Note ---
Medical - PN: Subj Patient information: Note initiated : 03/11/20 at 11:17 am Service Date, if different from initiated Date: [] Patient: Aditya Villafana a 75 y/o M admitted on 03/09/20 for Liver pain. Chief Complaint: [] Interval history: Mr. Villafana is a 75 year old M with a history of chronic alcoholism who recently quit drinking 3 months ago. He was in his baseline state of health and lives at [facility]. Over the last 8 to 10 days he has been getting progressively weak along with associated dull pain, nausea and loss of appetite. Symptoms are progressed that he is barely able to function or eat. He denies taking new medications. He however gives a history that all his family members were recently positive with COVID-19. He however was not tested. He denies having similar symptoms including URI/diarrhea/cough or shortness of breath except for above abdominal symptoms. Patient work-up in the ER was consistent with acute pancreatitis with lipase over 2800 CT evidence of pancreatitis. Hospital service was consulted after patient was started on crystalloid/supportive management. At time evaluation patient is able to answer most the question but intermittently confused. Cover test was performed. He does not seem to apparent distress. He denies shortness of breath, shaking chills, fever, sore throat. He denies using alcohol recently 03/10-patient clinically improving. Stable hemodynamics. Improving abdominal pain nausea. Ultrasound shows evidence of cholecystitis/gallstone. Case discussed with surgery. Patient will likely require cholecystectomy during this hospitalization. Continue crystalloid/continue full liquids/conservative manage including fluids and analgesics. 03/11-patient doing well. No overnight events. No concerns per staff. White count down to 6.5. Tolerating full liquids. Advance to soft low-fat diet. Lipase down to 143. CRP 8.2. Dissipate discharge in 24 hours if patient tolerating diet. Advance hepatocellular carcinoma currently being treated by oncology. - Constitutional Vitals: Vital Signs Temp Pulse Resp BP Pulse Ox 96.9 F L 75 18 118/52 95 03/11/20 08:00 03/11/20 08:00 03/11/20 08:00 03/11/20 08:00 03/11/20 03:18 Period Temp Pulse Resp BP Sys/Flynn Pulse Ox Last 24 Hr 96.9 F-100.2 F 71-76 16-18 100-126/52-68 95-98 Intake and Output 03/10/20 03/11/20 03/11/20 21:59 05:59 13:59 Intake Total 1280 720 940 Output Total 101 625 340 Balance 1179 95 600 Weight 132 lb 14.4 oz Intake & Output: Intake & Output 03/10/20 03/11/20 03/11/20 21:59 05:59 13:59 Intake Total 1280 720 940 Output Total 101 625 340 Balance 1179 95 600 Weight 132 lb 14.4 oz Intake: IV 200 300 100 Oral 1080 420 840 Output: Void Amount 100 625 340 # of times incontinent of urine 1 Other: Meal Dinner Breakfast Percent of Meal Consumed 75% 100% Feeding Ability Independent Independent Urine Appearance Clear Clear Clear Urine Color Dark Yellow Bright Yellow Dark Yellow # Voids 1 General appearance: no acute distress Exam: Alert nonlabored breathing No anxiety Nontender nondistended abdomen Ambulating Medical - PN: Obj Da - Labs CBC & Chem 7: 03/11/20 05:28 03/11/20 05:28 Labs: Abnormal Lab Results 03/11/20 03/11/20 03/10/20 05:28 05:28 09:54 WBC RBC 3.80 L Hgb 12.0 L Hct 36.1 L MPV 11.5 H Gran % Lymph % (Auto) Gran # Lymph # (Auto) Seg Neutrophils % 79 H BUN 7 L Glucose Calcium 8.3 L Phosphorus AST ALT C-Reactive Protein 8.2 H Total Protein 5.6 L Albumin 3.1 L Lipase 143 H Urine Urobilinogen 03/10/20 03/10/20 03/09/20 05:35 05:35 02:45 WBC RBC 3.80 L Hgb 12.5 L Hct 36.4 L MPV 11.1 H Gran % Lymph % (Auto) Gran # Lymph # (Auto) Seg Neutrophils % BUN Glucose 106 H Calcium 8.5 L Phosphorus 2.6 L AST ALT C-Reactive Protein 7.3 H Total Protein 5.5 L Albumin 3.1 L Lipase Urine Urobilinogen 4.0 A 03/09/20 03/09/20 02:10 02:10 WBC 14.4 H RBC 4.61 L Hgb Hct MPV 11.0 H Gran % 88.0 H Lymph % (Auto) 7.8 L Gran # 12.66 H Lymph # (Auto) 1.13 L Seg Neutrophils % BUN Glucose 117 H Calcium Phosphorus AST 122 H ALT 63 H C-Reactive Protein Total Protein Albumin Lipase 2824 H Urine Urobilinogen Meds: Medications Acetaminophen (Tylenol) 650 mg PO Q4-6HP PRN; Protocol PRN Reason: Per Pain Protocol/Fever > 101 Bisacodyl (Dulcolax) 10 mg [place] Q2-3DAYS PRN PRN Reason: Constipation Docusate Sodium (Colace) 100 mg PO BID [facility] Last Admin: 03/11/20 08:30 Dose: 100 mg Documented by: Folic Acid (Folic Acid) 1 mg PO QDAY [facility] Last Admin: 03/11/20 08:30 Dose: 1 mg Documented by: Heparin Sodium (Porcine) (Heparin) 5,000 unit SQ Q12 [facility] Last Admin: 03/11/20 08:31 Dose: 5,000 unit Documented by: Hydromorphone HCl (Dilaudid) 0.5 mg IV Q2HP PRN; Protocol PRN Reason: Per Pain Protocol Magnesium Sulfate (Magnesium Sulfate) 2 gm in 50 mls @ 50 mls/hr IV UD PRN PRN Reason: MG = or < 1.7 Ciprofloxacin (Cipro) 400 mg in 200 mls @ 200 mls/hr IV Q12H [facility]; Protocol Last Admin: 03/11/20 09:27 Dose: 200 mls/hr Documented by: Metronidazole (Flagyl) 500 mg in 100 mls @ 100 mls/hr IV Q6H [facility]; Protocol Last Infusion: 03/11/20 06:32 Dose: Infused Documented by: Iron Carb/Multivit/[place]/Folic Acid (Multivitamin W/Minerals) 1 tab PO DAILY [facility] Last Admin: 03/11/20 08:30 Dose: 1 tab Documented by: Melatonin (Melatonin 3mg Tablet) 3 mg PO HSP PRN PRN Reason: Insomnia Ondansetron HCl (Zofran) 4 mg IV Q4HP PRN PRN Reason: Nausea And Vomiting Ondansetron HCl (Zofran Odt) 4 mg SL Q4-6HP PRN; Protocol PRN Reason: Nausea And Vomiting Polyethylene Glycol (Miralax) 17 gm PO DAILYP PRN PRN Reason: Constipation Potassium Chloride (Klor-Con) 40 meq PO DAILYP PRN PRN Reason: K+ < 3.5 Senna/Docusate Sodium (Senna Plus Tablet) 1 tab PO HS [facility] Last Admin: 03/10/20 21:13 Dose: 1 tab Documented by: Sodium Chloride (Saline Flush) 10 ml IV Q8 [facility] Last Admin: 03/11/20 05:32 Dose: 10 ml Documented by: Thiamine HCl (Vitamin B1) 100 mg PO QDAY [facility] Last Admin: 03/11/20 08:30 Dose: 100 mg Documented by: Venlafaxine HCl (Effexor Xr) 75 mg PO DAILY [facility] Last Admin: 03/11/20 08:30 Dose: 75 mg Documented by: Medical - PN: A/P - Time Spent With Patient Total time spent is greater than 50% in coordination of care (as documented) at patient's floor/unit and/or counseling patient: 25 - 35 minutes (1) Acute pancreatitis Status: Acute Assessment and plan: * Acute gallstone pancreatitis -clinically resolved. Lipase normalized. Advance to soft low-fat diet * Acute cholecystitis on imaging however per surgery unlikely as finding consistent with peripancreatic fluid secondary to pancreatic inflammation. No indication for surgical intervention. * Leukocytosis with systemic inflammatory response syndrome -resolved * Elevated LFTs --normalized * Recent exposure to coronavirus-await COVID 19 results continue * Tobacco dependence start nicotine patch * Full code * prophylaxis Heparin Plan * Advance diet to low-fat * Possible discharge in 24 hours * PT OT nutrition support * Nicotine patch Current Visit: Yes Medical - PN: Qual - Stroke Symptom Onset Unknown: No - VTE Deep Vein Thrombosis/Pulmonary Embolism Present on Admission: No
[2020-03-11] MEDS: SENNOSIDES/DOCUSATE SODIUM 1 TAB TABLET PO SCH (21:42)
[2020-03-12] MEDS: 0.9 % SODIUM CHLORIDE 10 ML SYRINGE IV SCH ×3 (05:59→21:13)
[2020-03-12] MEDS: metroNIDAZOLE 500 MG/100 ML BAG IV SCH (05:59)
[2020-03-12 06:21] LABS: Hematocrit 35.8 % (40.1-51.0); Hemoglobin 12.1 g/dL (13.7-17.5); Mean Cell Volume 95.5 fL (80.0-100.0); Mean Corpuscular HGB Conc 33.8 g/dL (31.0-36.0); Mean Platelet Volume 11.5 fL (7.4-10.4); Platelet Count 174 K/mcL (140-440); RBC 3.75 M/mcL (4.63-6.08); Red Cell Distribution Width 12.8 % (11.5-14.5); WBC 6.3 K/mcL (4.50-11.00)
[2020-03-12 06:46] LABS: ALT/SGPT 22 U/l (0-40); AST/SGOT 15 U/l (0-37); Albumin 3.1 gm/dL (3.2-5.2); Albumin/Globulin Ratio 1.1 (1.0-2.3); Alkaline Phosphatase 58 U/L (39-117); Bilirubin,Direct < 0.2 mg/dL (0.0-0.3); Bilirubin,Total 0.6 mg/dL (0.0-1.0); Blood Urea Nitrogen 7 mg/dl (8-23); C-Reactive Protein 7.3 mg/dl (0.0-0.8); Calcium 8.5 mg/dl (8.6-10.4); Carbon Dioxide 26 mmol/L (22-30); Chloride 104 mmol/L (96-108); Globulin 2.8 gm/dL (2.2-3.7); Glomerular Filtration Rate 99; Glucose 102 mg/dL (70-105); Lactate Dehydrogenase 181 U/L (94-250); Phosphorous 2.5 mg/dL (2.7-4.5); Triglycerides 49 mg/dl (<150); Uric Acid 3.9 mg/dL (2.5-8.0)
[2020-03-12 08:01] LABS: Eosinophils % (Manual) 2 % (0-7); Lymphocytes % 25 % (15-49); Monocytes % (Manual) 8 % (1-12); Platelet Estimate NORMAL (NORMAL); RBC Morphology NORMAL (NORMAL); Segmented Neutrophils % 65 % (38-78)
[2020-03-12] MEDS: THIAMINE 100 MG TABLET PO SCH (09:51)
[2020-03-12] MEDS: MULTIVIT,THER IRON,CA,FA & MIN 1 TABLET PO SCH (09:51)
[2020-03-12] MEDS: HEPARIN 5,000 UNIT/ML VIAL SQ SCH ×2 (09:51→21:12)
[2020-03-12] MEDS: VENLAFAXINE 75 MG CAP.XL.24H PO SCH (09:51)
[2020-03-12] MEDS: FOLIC ACID 1 MG TABLET PO SCH (09:51)
[2020-03-12] MEDS: DOCUSATE SODIUM 100 MG CAPSULE PO SCH ×2 (09:52→21:13)
--- NOTE | 2020-03-12 10:02 | Internal Med Progress Note ---
Medical - PN: Subj Patient information: Note initiated : 03/12/20 at 9:59 am Service Date, if different from initiated Date: [] Patient: Aditya Villafana a 75 y/o M admitted on 03/09/20 for Liver pain. Chief Complaint: [] Interval history: Mr. Villafana is a 75 year old M with a history of chronic alcoholism who recently quit drinking 3 months ago. He was in his baseline state of health and lives at [facility]. Over the last 8 to 10 days he has been getting progressively weak along with associated dull pain, nausea and loss of appetite. Symptoms are progressed that he is barely able to function or eat. He denies taking new medications. He however gives a history that all his family members were recently positive with COVID-19. He however was not tested. He denies having similar symptoms including URI/diarrhea/cough or shortness of breath except for above abdominal symptoms. Patient work-up in the ER was consistent with acute pancreatitis with lipase over 2800 CT evidence of pancreatitis. Hospital service was consulted after patient was started on crystalloid/supportive management. At time evaluation patient is able to answer most the question but intermittently confused. Cover test was performed. He does not seem to apparent distress. He denies shortness of breath, shaking chills, fever, sore throat. He denies using alcohol recently 03/10-patient clinically improving. Stable hemodynamics. Improving abdominal pain nausea. Ultrasound shows evidence of cholecystitis/gallstone. Case discussed with surgery. Patient will likely require cholecystectomy during this hospitalization. Continue crystalloid/continue full liquids/conservative manage including fluids and analgesics. 03/11-patient doing well. No overnight events. No concerns per staff. White count down to 6.5. Tolerating full liquids. Advance to soft low-fat diet. Lipase down to 143. CRP 8.2. Dissipate discharge in 24 hours if patient tolerating diet. Advance hepatocellular carcinoma currently being treated by oncology. 03/12-COVID test positive. On isolation. Tolerating diet. No overnight events including fever chills. Family now expressed inability to take care of patient due to high needs. Family feels it be safest for patient to go to long-term. Case management coordinating. Tolerating diet. Denies abdominal pain nausea vomiting. - Constitutional Vitals: Vital Signs Temp Pulse Resp BP Pulse Ox 97.2 F 66 18 122/68 98 03/12/20 07:24 03/12/20 07:24 03/12/20 07:24 03/12/20 07:24 03/12/20 07:24 Period Temp Pulse Resp BP Sys/Flynn Pulse Ox Last 24 Hr 97.2 F-98.8 F 64-72 18-22 112-122/54-68 95-98 Intake and Output 03/11/20 03/12/20 03/12/20 21:59 05:59 13:59 Intake Total 1100 540 Output Total 830 1025 Balance 270 -485 Weight 132 lb Intake & Output: Intake & Output 03/11/20 03/12/20 03/12/20 21:59 05:59 13:59 Intake Total 1100 540 Output Total 830 1025 Balance 270 -485 Weight 132 lb Intake: IV 1100 300 Lactated Ringers 1,000 ml @ 100 1000 mls/hr IV .Q10H AYAD Rx#: [id number] Oral 240 Output: Void Amount 830 1025 Other: Urine Appearance Clear Urine Color Pale Dark Kate General appearance: no acute distress Exam: Alert Intermittently confused Nondistended nontender abdomen No anxiety Medical - PN: Obj Da - Labs CBC & Chem 7: 03/12/20 05:19 03/12/20 05:19 Labs: Abnormal Lab Results 03/12/20 03/12/20 03/11/20 05:19 05:19 05:28 RBC 3.75 L Hgb 12.1 L Hct 35.8 L MPV 11.5 H Seg Neutrophils % BUN 7 L 7 L Creatinine 0.6 L Glucose Calcium 8.5 L 8.3 L Phosphorus 2.5 L C-Reactive Protein 7.3 H 8.2 H Total Protein 5.6 L Albumin 3.1 L 3.1 L Lipase Nasal/Oral COVID-19 PCR 03/11/20 03/10/20 03/10/20 05:28 09:54 05:35 RBC 3.80 L Hgb 12.0 L Hct 36.1 L MPV 11.5 H Seg Neutrophils % 79 H BUN Creatinine Glucose 106 H Calcium 8.5 L Phosphorus 2.6 L C-Reactive Protein 7.3 H Total Protein 5.5 L Albumin 3.1 L Lipase 143 H Nasal/Oral COVID-19 PCR 03/10/20 03/09/20 05:35 06:40 RBC 3.80 L Hgb 12.5 L Hct 36.4 L MPV 11.1 H Seg Neutrophils % BUN Creatinine Glucose Calcium Phosphorus C-Reactive Protein Total Protein Albumin Lipase Nasal/Oral COVID-19 PCR Positive A Meds: Medications Acetaminophen (Tylenol) 650 mg PO Q4-6HP PRN; Protocol PRN Reason: Per Pain Protocol/Fever > 101 Bisacodyl (Dulcolax) 10 mg [place] Q2-3DAYS PRN PRN Reason: Constipation Docusate Sodium (Colace) 100 mg PO BID [facility] Last Admin: 03/12/20 09:52 Dose: Not Given Documented by: Folic Acid (Folic Acid) 1 mg PO QDAY [facility] Last Admin: 03/12/20 09:51 Dose: 1 mg Documented by: Heparin Sodium (Porcine) (Heparin) 5,000 unit SQ Q12 [facility] Last Admin: 03/12/20 09:51 Dose: 5,000 unit Documented by: Hydromorphone HCl (Dilaudid) 0.5 mg IV Q2HP PRN; Protocol PRN Reason: Per Pain Protocol Magnesium Sulfate (Magnesium Sulfate) 2 gm in 50 mls @ 50 mls/hr IV UD PRN PRN Reason: MG = or < 1.7 Iron Carb/Multivit/Sh[employer]visor/Folic Acid (Multivitamin W/Minerals) 1 tab PO DAILY [facility] Last Admin: 03/12/20 09:51 Dose: 1 tab Documented by: Melatonin (Melatonin 3mg Tablet) 3 mg PO HSP PRN PRN Reason: Insomnia Ondansetron HCl (Zofran) 4 mg IV Q4HP PRN PRN Reason: Nausea And Vomiting Ondansetron HCl (Zofran Odt) 4 mg SL Q4-6HP PRN; Protocol PRN Reason: Nausea And Vomiting Polyethylene Glycol (Miralax) 17 gm PO DAILYP PRN PRN Reason: Constipation Potassium Chloride (Klor-Con) 40 meq PO DAILYP PRN PRN Reason: K+ < 3.5 Senna/Docusate Sodium (Senna Plus Tablet) 1 tab PO HS [facility] Last Admin: 03/11/20 21:42 Dose: Not Given Documented by: Sodium Chloride (Saline Flush) 10 ml IV Q8 [facility] Last Admin: 03/12/20 05:59 Dose: 10 ml Documented by: Thiamine HCl (Vitamin B1) 100 mg PO QDAY [facility] Last Admin: 03/12/20 09:51 Dose: 100 mg Documented by: Venlafaxine HCl (Effexor Xr) 75 mg PO DAILY [facility] Last Admin: 03/12/20 09:51 Dose: 75 mg Documented by: Medical - PN: A/P - Time Spent With Patient Total time spent is greater than 50% in coordination of care (as documented) at patient's floor/unit and/or counseling patient: 15 - 24 minutes (1) Acute pancreatitis Status: Acute Assessment and plan: * Acute gallstone pancreatitis -clinically resolved. Lipase normalized. Continue soft low-fat diet * COVID 19+-on appropriate precautions. No evidence of organ compromise * Leukocytosis with systemic inflammatory response syndrome -resolved * Elevated LFTs --normalized * Tobacco dependence continue nicotine patch * Full code * prophylaxis Heparin Plan * Diet as tolerated * Case management coordinate SNF transfer * PT OT nutrition support * Nicotine patch * COVID-19 precautions Current Visit: Yes Medical - PN: Qual - Stroke Symptom Onset Unknown: No - VTE Deep Vein Thrombosis/Pulmonary Embolism Present on Admission: No
[2020-03-12] MEDS: CIPROFLOXACIN 400 MG/200 ML BAG IV SCH (10:47)
[2020-03-12] MEDS: SENNOSIDES/DOCUSATE SODIUM 1 TAB TABLET PO SCH (21:13)
[2020-03-13 06:05] LABS: Hematocrit 37.9 % (40.1-51.0); Hemoglobin 12.8 g/dL (13.7-17.5); Mean Cell Volume 95.9 fL (80.0-100.0); Mean Corpuscular HGB Conc 33.8 g/dL (31.0-36.0); Mean Platelet Volume 11.8 fL (7.4-10.4); Platelet Count 189 K/mcL (140-440); RBC 3.95 M/mcL (4.63-6.08); WBC 5.1 K/mcL (4.50-11.00)
[2020-03-13 06:38] LABS: ALT/SGPT 26 U/l (0-40); AST/SGOT 31 U/l (0-37); Albumin 3.2 gm/dL (3.2-5.2); Albumin/Globulin Ratio 1.1 (1.0-2.3); Alkaline Phosphatase 60 U/L (39-117); Bilirubin,Direct < 0.2 mg/dL (0.0-0.3); Bilirubin,Total 0.4 mg/dL (0.0-1.0); Calcium 8.8 mg/dl (8.6-10.4); Carbon Dioxide 27 mmol/L (22-30); Chloride 104 mmol/L (96-108); Glomerular Filtration Rate 93; Glucose 93 mg/dL (70-105); Lactate Dehydrogenase 207 U/L (94-250); Triglycerides 49 mg/dl (<150); Uric Acid 4.9 mg/dL (2.5-8.0)
[2020-03-13 06:44] LABS: Blood Urea Nitrogen 13 mg/dl (8-23); Phosphorous 3.3 mg/dL (2.7-4.5)
[2020-03-13 07:49] LABS: Eosinophils % (Manual) 1 % (0-7); Lymphocytes % 30 % (15-49); Monocytes % (Manual) 8 % (1-12); Platelet Estimate NORMAL (NORMAL); RBC Morphology NORMAL (NORMAL); Segmented Neutrophils % 61 % (38-78)
[2020-03-13] MEDS: HEPARIN 5,000 UNIT/ML VIAL SQ SCH ×2 (09:00→21:23)
[2020-03-13] MEDS: DOCUSATE SODIUM 100 MG CAPSULE PO SCH ×2 (09:01→21:24)
[2020-03-13] MEDS: FOLIC ACID 1 MG TABLET PO SCH (09:01)
[2020-03-13] MEDS: MULTIVIT,THER IRON,CA,FA & MIN 1 TABLET PO SCH (09:01)
[2020-03-13] MEDS: VENLAFAXINE 75 MG CAP.XL.24H PO SCH (09:01)
[2020-03-13] MEDS: THIAMINE 100 MG TABLET PO SCH (09:01)
[2020-03-13] MEDS: SENNOSIDES/DOCUSATE SODIUM 1 TAB TABLET PO SCH (21:24)
[2020-03-14 06:48] LABS: Hematocrit 40.1 % (40.1-51.0); Hemoglobin 13.4 g/dL (13.7-17.5); Mean Cell Volume 96.9 fL (80.0-100.0); Mean Corpuscular HGB Conc 33.4 g/dL (31.0-36.0); Mean Platelet Volume 11.6 fL (7.4-10.4); Platelet Count 221 K/mcL (140-440); RBC 4.14 M/mcL (4.63-6.08); Red Cell Distribution Width 13.3 % (11.5-14.5); WBC 4.9 K/mcL (4.50-11.00)
[2020-03-14 07:12] LABS: ALT/SGPT 35 U/l (0-40); AST/SGOT 47 U/l (0-37); Albumin 3.4 gm/dL (3.2-5.2); Albumin/Globulin Ratio 1.2 (1.0-2.3); Alkaline Phosphatase 62 U/L (39-117); Bilirubin,Direct < 0.2 mg/dL (0.0-0.3); Bilirubin,Total 0.3 mg/dL (0.0-1.0); Blood Urea Nitrogen 18 mg/dl (8-23); Carbon Dioxide 28 mmol/L (22-30); Chloride 106 mmol/L (96-108); Globulin 2.9 gm/dL (2.2-3.7); Glomerular Filtration Rate 84; Glucose 92 mg/dL (70-105); Lactate Dehydrogenase 207 U/L (94-250); Phosphorous 3.5 mg/dL (2.7-4.5); Triglycerides 69 mg/dl (<150); Uric Acid 5.4 mg/dL (2.5-8.0)
[2020-03-14] MEDS: VENLAFAXINE 75 MG CAP.XL.24H PO SCH (08:19)
[2020-03-14] MEDS: FOLIC ACID 1 MG TABLET PO SCH (08:19)
[2020-03-14] MEDS: DOCUSATE SODIUM 100 MG CAPSULE PO SCH (08:19)
[2020-03-14] MEDS: MULTIVIT,THER IRON,CA,FA & MIN 1 TABLET PO SCH (08:19)
[2020-03-14] MEDS: THIAMINE 100 MG TABLET PO SCH (08:19)
[2020-03-14] MEDS: HEPARIN 5,000 UNIT/ML VIAL SQ SCH (08:21)
[2020-03-14 08:47] LABS: Band Neutrophils % 3 % (0-10); Eosinophils % (Manual) 2 % (0-7); Lymphocytes % 31 % (15-49); Monocytes % (Manual) 10 % (1-12); Platelet Estimate NORMAL (NORMAL); RBC Morphology NORMAL (NORMAL); Reactive Lymphocytes 1 % (0-2); Segmented Neutrophils % 53 % (38-78)
--- NOTE | 2020-03-14 09:05 | Discharge Summary ---
Medical - DS: Prov Patient information: Note initiated : 03/14/20 at 9:05 am Service Date, if different from initiated Date: [] Patient: Aditya Villafana a 75 y/o M admitted on 03/09/20 for Liver pain. Chief Complaint: [] Date of admission: 03/09/20 07:20 Discharge date: 03/14/20 Primary care physician: Alban Cortes Consults: 03/09/20 Consult to Physician [CONS] Stat Comment: Consulting Provider: Amado Reed Reason For Exam: Physician to Consult 03/10/20 09:27 Consult to Physician [CONS] Urgent Comment: gall stone pancreatitis Consulting Provider: Aiden Villafana Reason For Exam: Physician to Consult Medical - DS: Meds - Discharge Medications Active and Home Medications: Home Medications Folic Acid 1 mg PO QDAY 03/09/20 [History Confirmed 03/09/20 Last Taken Unknown] Multivit-Min/Iron Fum/Folic AC [Evopg-Hiodxnu-Capymiyw Tablet] 1 each PO QDAY 03/09/20 [History Confirmed 03/09/20 Last Taken Unknown] Thiamine [Vitamin B1] 100 mg PO QDAY 03/09/20 [History Confirmed 03/09/20 Last Taken Unknown] Venlafaxine HCl [Venlafaxine HCl ER] 75 mg PO QDAY 03/09/20 [History Confirmed 03/09/20 Last Taken Unknown] Medical - DS: Hosp Hospital Course: Discharge diagnosis * Acute gallstone pancreatitis -clinically resolved. Continue low fat diet * COVID 19+ maintain precautions * Leukocytosis with systemic inflammatory response syndrome -resolved * Elevated LFTs --normalized * Tobacco dependence continue nicotine patch Brief hospital course Mr. Villafana is a 75 year old M with a history of chronic alcoholism who recently quit drinking 3 months ago. He was in his baseline state of health and lives at [facility]. Over the last 8 to 10 days he has been getting progressively weak along with associated dull pain, nausea and loss of appetite. Symptoms are progressed that he is barely able to function or eat. He denies taking new medications. He however gives a history that all his family members were recently positive with COVID-19. He however was not tested. He denies having similar symptoms including URI/diarrhea/cough or shortness of breath except for above abdominal symptoms. Patient work-up in the ER was consistent with acute pancreatitis with lipase over 2800 CT evidence of pancreatitis. Hospital service was consulted after patient was started on crystalloid/supportive management. At time evaluation patient is able to answer most the question but intermittently confused. Cover test was performed. He does not seem to apparent distress. He denies shortness of breath, shaking chills, fever, sore throat. He denies using alcohol recently 03/10-patient clinically improving. Stable hemodynamics. Improving abdominal pain nausea. Ultrasound shows evidence of cholecystitis/gallstone. Case discussed with surgery. Patient will likely require cholecystectomy during this hospitalization. Continue crystalloid/continue full liquids/conservative manage including fluids and analgesics. 03/11-patient doing well. No overnight events. No concerns per staff. White count down to 6.5. Tolerating full liquids. Advance to soft low-fat diet. Lipase down to 143. CRP 8.2. Dissipate discharge in 24 hours if patient tolerating diet. Advance hepatocellular carcinoma currently being treated by oncology. 03/12-COVID test positive. On isolation. Tolerating diet. No overnight events including fever chills. Family now expressed inability to take care of patient due to high needs. Family feels it be safest for patient to go to snf. Case management coordinating. Tolerating diet. Denies abdominal pain nausea vomiting. 03/13-patient clinically improved. Denies abdominal pain nausea vomiting. Able to ambulate and tolerating diet. Awaiting discharge likely in 24 hours. No overnight fever chills nausea vomiting. 03/14-continue diet advancement as tolerated. Recommend refraining from alcohol use/high-fat diet. Maintain COVID-19 precautions. Discharge diagnosis: . - Time Spent with Patient Total time spent providing and/or coordinating discharge services: Greater than 30 minutes Medical - DS: Exam - Constitutional Vitals: Vital Signs Temp Pulse Pulse Resp BP Pulse Ox 03/14/20 08:15 97.8 F 62 18 110/52 98 03/13/20 21:36 97.0 F 03/13/20 21:28 60 12 115/60 100 03/13/20 12:30 98.4 F 70 18 121/61 95 Intake and Output 03/13/20 03/14/20 03/14/20 21:59 05:59 13:59 Intake Total 300 480 Balance 300 480 Intake: Oral 300 480 Other: Meal Lunch Percent of Meal Consumed 100% Tuna sandw Feeding Ability Independent Independent # Voids 1 Weight 127 lb Medical - DS: Data Labs on day of discharge: Labs from last 24 hours 03/14/20 03/14/20 04:39 04:38 WBC 4.9 RBC 4.14 L Hgb 13.4 L Hct 40.1 MCV 96.9 MCH 32.4 MCHC 33.4 RDW 13.3 Plt Count 221 MPV 11.6 H Total Counted 100 Seg Neutrophils % 53 Band Neutrophils % 3 Lymphocytes % 31 Monocytes % (Manual) 10 Eosinophils % (Manual) 2 Reactive Lymphocytes 1 Platelet Estimate Normal RBC Morphology Normal Sodium 142 Potassium 4.8 Chloride 106 Carbon Dioxide 28 Anion Gap 8.0 BUN 18 Creatinine 0.9 GFR Calculation 84 Glucose 92 Uric Acid 5.4 Calcium 9.0 Phosphorus 3.5 Magnesium 2.0 Total Bilirubin 0.3 Direct Bilirubin < 0.2 GGT 53 AST 47 H ALT 35 Alkaline Phosphatase 62 Lactate Dehydrogenase 207 Total Protein 6.3 Albumin 3.4 Globulin 2.9 Albumin/Globulin Ratio 1.2 Triglycerides 69 Preliminary micro results at discharge 03/10/20 09:50 Blood Culture - Preliminary Blood 03/10/20 09:54 Blood Culture - Preliminary Blood Medical - DS: A/P - Patient/Caregiver Discharge Instructions Activity: increase activity as tolerated Diet: Low Fat Additional Instructions: Maintain COVID-19 contact precautions Please provide COVID-19 discharge handout Continue low-fat diet Follow-up PCP in 7 to 10 days Refrain from alcohol Return to ER if worsening shortness of breath, nausea vomiting abdominal pain - Problem Maintenance (1) Acute pancreatitis Status: Acute - Follow up Plan Follow up with: Alban Cortes DO [Primary Care Provider] - Disposition: Home, Self-Care Prognosis: Fair Rehab Potential: Fair I certify that the patient requires SNF services: No Overall status at discharge: patient is progressing back to baseline Medical - DS: Qual - VTE Deep Vein Thrombosis/Pulmonary Embolism Present on Admission: No
--- NOTE | 2020-03-14 09:07 | Internal Med Progress Note ---
Medical - PN: Subj Patient information: Note initiated : 03/13/20 at 11:06 am Service Date, if different from initiated Date: [] Patient: Aditya Villafana a 75 y/o M admitted on 03/09/20 for Liver pain. Chief Complaint: [] Interval history: Mr. Villafana is a 75 year old M with a history of chronic alcoholism who recently quit drinking 3 months ago. He was in his baseline state of health and lives at [facility]. Over the last 8 to 10 days he has been getting progressively weak along with associated dull pain, nausea and loss of appetite. Symptoms are progressed that he is barely able to function or eat. He denies taking new medications. He however gives a history that all his family members were recently positive with COVID-19. He however was not tested. He denies having similar symptoms including URI/diarrhea/cough or shortness of breath except for above abdominal symptoms. Patient work-up in the ER was consistent with acute pancreatitis with lipase over 2800 CT evidence of pancreatitis. Hospital service was consulted after patient was started on crystalloid/supportive management. At time evaluation patient is able to answer most the question but intermittently confused. Cover test was performed. He does not seem to apparent distress. He denies shortness of breath, shaking chills, fever, sore throat. He denies using alcohol recently 03/10-patient clinically improving. Stable hemodynamics. Improving abdominal pain nausea. Ultrasound shows evidence of cholecystitis/gallstone. Case discussed with surgery. Patient will likely require cholecystectomy during this hospitalization. Continue crystalloid/continue full liquids/conservative manage including fluids and analgesics. 03/11-patient doing well. No overnight events. No concerns per staff. White count down to 6.5. Tolerating full liquids. Advance to soft low-fat diet. Lipase down to 143. CRP 8.2. Dissipate discharge in 24 hours if patient tolerating diet. Advance hepatocellular carcinoma currently being treated by oncology. 03/12-COVID test positive. On isolation. Tolerating diet. No overnight events including fever chills. Family now expressed inability to take care of patient due to high needs. Family feels it be safest for patient to go to fdc. Case management coordinating. Tolerating diet. Denies abdominal pain nausea vomiting. 03/13-patient clinically improved. Denies abdominal pain nausea vomiting. Able to ambulate and tolerating diet. Awaiting discharge likely in 24 hours. No overnight fever chills nausea vomiting. - Constitutional Vitals: Vital Signs Temp Pulse Resp BP Pulse Ox 97.8 F 62 18 110/52 98 03/14/20 08:15 03/14/20 08:15 03/14/20 08:15 03/14/20 08:15 03/14/20 08:15 Period Temp Pulse Resp BP Sys/Flynn Pulse Ox Last 24 Hr 97.0 F-98.4 F 60-70 12-18 110-121/52-61 95-100 Intake and Output 03/13/20 03/14/20 03/14/20 21:59 05:59 13:59 Intake Total 300 480 Balance 300 480 Weight 127 lb Intake & Output: Intake & Output 03/13/20 03/14/20 03/14/20 21:59 05:59 13:59 Intake Total 300 480 Balance 300 480 Weight 127 lb Intake: Oral 300 480 Other: Meal Lunch Percent of Meal Consumed 100% Tuna sandw Feeding Ability Independent Independent # Voids 1 General appearance: no acute distress Exam: Nonlabored breathing Nontender nondistended abdomen No anxiety Medical - PN: Obj Da - Labs CBC & Chem 7: 03/14/20 04:39 03/14/20 04:38 Labs: Abnormal Lab Results 03/14/20 03/14/20 03/13/20 04:39 04:38 05:02 RBC 4.14 L 3.95 L Hgb 13.4 L 12.8 L Hct 37.9 L MPV 11.6 H 11.8 H BUN Creatinine Calcium Phosphorus AST 47 H C-Reactive Protein Albumin Nasal/Oral COVID-19 PCR 03/12/20 03/12/20 03/09/20 05:19 05:19 06:40 RBC 3.75 L Hgb 12.1 L Hct 35.8 L MPV 11.5 H BUN 7 L Creatinine 0.6 L Calcium 8.5 L Phosphorus 2.5 L AST C-Reactive Protein 7.3 H Albumin 3.1 L Nasal/Oral COVID-19 PCR Positive A Meds: Medications Acetaminophen (Tylenol) 650 mg PO Q4-6HP PRN; Protocol PRN Reason: Per Pain Protocol/Fever > 101 Bisacodyl (Dulcolax) 10 mg [place] Q2-3DAYS PRN PRN Reason: Constipation Docusate Sodium (Colace) 100 mg PO BID [facility] Last Admin: 03/14/20 08:19 Dose: 100 mg Documented by: Folic Acid (Folic Acid) 1 mg PO QDAY [facility] Last Admin: 03/14/20 08:19 Dose: 1 mg Documented by: Heparin Sodium (Porcine) (Heparin) 5,000 unit SQ Q12 [facility] Last Admin: 03/14/20 08:21 Dose: 5,000 unit Documented by: Hydromorphone HCl (Dilaudid) 0.5 mg IV Q2HP PRN; Protocol PRN Reason: Per Pain Protocol Magnesium Sulfate (Magnesium Sulfate) 2 gm in 50 mls @ 50 mls/hr IV UD PRN PRN Reason: MG = or < 1.7 Iron Carb/Multivit/[place]/Folic Acid (Multivitamin W/Minerals) 1 tab PO DAILY [facility] Last Admin: 03/14/20 08:19 Dose: 1 tab Documented by: Melatonin (Melatonin 3mg Tablet) 3 mg PO HSP PRN PRN Reason: Insomnia Ondansetron HCl (Zofran) 4 mg IV Q4HP PRN PRN Reason: Nausea And Vomiting Ondansetron HCl (Zofran Odt) 4 mg SL Q4-6HP PRN; Protocol PRN Reason: Nausea And Vomiting Polyethylene Glycol (Miralax) 17 gm PO DAILYP PRN PRN Reason: Constipation Potassium Chloride (Klor-Con) 40 meq PO DAILYP PRN PRN Reason: K+ < 3.5 Senna/Docusate Sodium (Senna Plus Tablet) 1 tab PO HS [facility] Last Admin: 03/13/20 21:24 Dose: Not Given Documented by: Thiamine HCl (Vitamin B1) 100 mg PO QDAY [facility] Last Admin: 03/14/20 08:19 Dose: 100 mg Documented by: Venlafaxine HCl (Effexor Xr) 75 mg PO DAILY [facility] Last Admin: 03/14/20 08:19 Dose: 75 mg Documented by: Medical - PN: A/P - Time Spent With Patient Total time spent is greater than 50% in coordination of care (as documented) at patient's floor/unit and/or counseling patient: 15 - 24 minutes (1) Acute pancreatitis Status: Acute Assessment and plan: * Acute gallstone pancreatitis -clinically resolved. Lipase normalized. Tolerating diet. Advancing as tolerated. Possible discharge in 24 hours. * COVID 19+ on appropriate precautions. No evidence of organ compromise. * Systemic inflammatory response syndrome -resolved * Elevated LFTs -normalized * Tobacco dependence continue nicotine patch * Full code * prophylaxis Heparin Plan * Advance diet as tolerated * Discharge likely in 24 hours * Nutrition support * Continue nicotine patch * COVID-19 precautions Current Visit: Yes Medical - PN: Qual - Stroke Symptom Onset Unknown: No - VTE Deep Vein Thrombosis/Pulmonary Embolism Present on Admission: No
== END 2020-03-14 18:55 | disposition home or self-care (01) | DRG 438 ==
LOC: ED 01:06 → MEDSUR 07:20
PROVIDERS: ADMIT Internal Medicine; ATTEND Internal Medicine